=== PATIENT | female | born 1990 | race Caucasian/White ===

== ENCOUNTER 2024-09-10 10:59 | Emergency (ER) | payer OTHER, SELFPAY ==
[2024-09-10 11:00] VITALS: BP 139/88; PULSE 103; RESP 16; TEMP 36.5; O2SAT 100; BMI 27.3
--- NOTE | 2024-09-10 11:02 | ED_ITS ---
HPI - General Adult General Chief complaint: Skin/Abscess/Foreign Body Stated complaint: hives/rash Time Seen by Provider: 09/10/24 11:07 Source: patient, RN notes reviewed and old records reviewed Mode of arrival: ambulatory Limitations: no limitations History of Present Illness ED Provider: [facility] narrative: Patient is a 34-year-old female presenting to the ED with complaint of pruritic rash which has waxed and waned for the past few months. Recently prescribed prednisone after telehealth visit with a wood and hardware outfitter. States this improved her symptoms but symptoms returned on Thursday when the prednisone finished. Denies fevers, URI symptoms, changes is soaps, medications, food, etc. MD complaint: rash Onset (ago): month(s) Related Data Previous Rx's ?Medication ?Instructions ?Recorded ketoconazole 2 % shampoo 1 appl topical 3XW #120 mL 09/10/24 ketoconazole 2 % topical cream 1 appl topical BID #30 grams 09/10/24 Allergies Allergy/AdvReac Type Severity Reaction Status Date / Time No Known Allergies Allergy Verified 09/10/24 11:03 Review of Systems Review of Systems: As per MDM Yes all other systems are reviewed and are negative Constitutional: Constitutional: Reports as per HPI Physical Exam ED Vital Signs: Vital Signs - 24 hr 09/10/24 11:00 Temperature 97.7 F Pulse Rate 103 H Respiratory Rate 16 Blood Pressure 139/88 Pulse Oximetry 100 Oxygen Delivery Method Room Air BMI result Body Mass Index 27.3 Vital signs have been reviewed and appear to be correct. Blood pressure normal. Heart rate slightly tachycardic. Respiratory rate normal. Temperature normal. Oxygen saturation normal. Const General: cooperative, healthy appearing and no acute distress Orientation/consciousness: oriented to person, oriented to place, oriented to time and patient oriented x3 Limitations: no limitations HENMT Head: Yes normocephalic and Yes atraumatic Ears: external ears normal General nose exam: Normal external nose present Face and sinus: Yes face symmetric Mouth: oropharynx normal and moist mucous membranes Throat: Yes uvula midline Eyes Pupils: Equal, round and reactive pupils present Neck Neck: Yes normal visual inspection and Yes supple Resp Effort & Inspection: normal respiratory effort and able to speak in complete sentences Auscultation: clear to auscultation bilaterally Cardio Rate: regular rate Rhythm: regular rhythm Heart sounds: S1 normal heart sound present and S2 normal heart sound present GI Palpation (GI): Soft to palpation and nontender Auscultation: normoactive bowel sounds General: Yes no CVA tenderness Back/Spine/Pelvis Back: no CVA tenderness Skin Other: annular erythema with central clearing to abdomen with satellite papules consistent with tinea General skin exam: elasticity normal and turgor normal Neuro General: oriented to person, oriented to place, oriented to time, patient oriented x3, moves all extremities, no focal motor deficits and CN's II-XI intact bilaterally Cranial nerves: Yes Equal, round and reactive pupils present Cognition (Neuro): normal cognition Extrem General: Yes full ROM, Yes no pedal edema and Yes no calf tenderness Psych Mental Status: mental status grossly normal Affect: normal affect Thought process: Normal thought process present Medical Decision Making Medical Decision Making [facility] Narrative: Patient is a 34-year-old female presenting to the ED with complaint of pruritic rash which has waxed and waned for the past few months. On exam patient is awake, A+Ox3, VS WNL, afebrile, normal neurological exam without focal deficits, physical exam findings as above. Given reported symptoms and physical exam findings, initial differential includes but is not limited to tinea corporis, contact dermatitis, urticaria. Rash consistent with tinea, will treat with ketoconazole cream and soap. Discussed with patient thoroughly washing all bedding, towels, clothing in hot soapy water and drying thoroughly. Also to avoid reusing towels without washing. Return precautions discussed. Will refer to derm for ongoing symptoms. Patient verbalized understanding of and agreement with plan. Differential Diagnosis Differential Diagnoses: The differential diagnosis associated with the presentation includes As per [facility] Admission/Observation Consideration of admission/observation: Escalation of care including admission/observation considered Patient would have been admitted to the hospital had their work up had any findings where hospital admission was appropriate and their clinical presentation warranted hospital admission. External Record Review External record reviewed: Inpatient record, Office record and Outpatient record Prescription Management I considered prescription management with: Other Discharge Plan Discharge Clinical Impression: Tinea corporis Patient Disposition: Home, Self-Care Instructions: Tinea Corporis (ED) Additional Instructions: You were evaluated in the emergency department today for a rash. Your evaluation did not reveal evidence of conditions requiring emergent medical treatment. Your rash appears consistent with a tinea infection. You are being treating with an antifungal cream and soap, use these as prescribed. We also recommend that you take a daily antihistamine such as loratadine (Claritin) or cetirizine (Zyrtec). You can also add over the counter famotidine (Pepcid) which is a different type of antihistamine. You can apply a thick unscented lotion to the affected areas such as Eucerine or Vanicream several times daily. Follow up with your primary care provider this week. If your symptoms do not improve, follow up with a wood and hardware outfitter. Return to the emergency department if you develop difficulty breathing or shortness of breath, swelling to lips, tong ue, fever, rash inside your mouth or to your palms/soles or any other concerning symptoms. Prescriptions: New ketoconazole 2 % shampoo 1 appl topical 3XW Qty: 120 0RF ketoconazole 2 % cream 1 appl topical BID Qty: 30 0RF Rx Instructions: Continue use for at least one week after resolution of symptoms. Referrals: [facility] [Provider Group] Print Language: Filipino
--- OUTSIDE RECORDS SUMMARY | 2024-09-10 11:14 | XMS_ITS | Encounter Summary ---
Author Organization [facility] Address [address] [place] [address] Care Team Providers [facility] Name Role Phone Unavailable Primary Care Provider Unavailabl e Encounter Details Date Type Department Care Team (Latest Contact Info) Description 04/21/2019 Abstract [facility] CONVERSIONS Dental, Provider, DDS Social History Tobacco Use Types Packs/Day Years Used Date Smoking Tobacco: Never Assessed Sex and Gender Information Value Date Recorded Sex Assigned at Not on file Legal Sex Male 5:37 PM EDT Gender Identity Not on file Sexual Orientation Not on file documented as of this encounter Plan of Treatment Not on file documented as of this encounter Visit Diagnoses Not on filedocumented in this encounter
[2024-09-10 11:19] VITALS: BP 139/88; PULSE 103; RESP 16; TEMP 36.5; O2SAT 100
== END 2024-09-10 11:20 | disposition home or self-care (01) ==
PROVIDERS: Emergency Provider Emergency Medicine
DX: B35.4 Tinea corporis (principal)
CPT/HCPCS: 99282; 99283